=== PATIENT | male | born 1990 | race Caucasian/White ===

== ENCOUNTER 2024-07-20 00:09 | Emergency (ER) | payer OTHER ==
[~2024-07-20] VITALS: Ht 172.7 cm; Wt 96.0 kg
[2024-07-20 00:26] VITALS: O2SAT 98
[2024-07-20 02:40] LABS: BASOPHILS % 1.1 % (0.0-2.0); EOSINOPHILS % 2.2 % (0.0-5.0); HEMATOCRIT. 42.6 % (42.0-52.0); HEMOGLOBIN. 14.3 g/dL (14.0-18.0); LYMPHOCYTES % 35.6 % (20.0-50.0); MEAN CORPUSCULAR HEMOGLOBIN 28.6 pg (28.0-32.0); MEAN CORPUSCULAR HGB CONC 33.4 g/dL (31.0-37.0); MEAN CORPUSCULAR VOLUME 85.5 fL (80.0-94.0); MEAN PLATELET VOLUME 8.3 fl (7.4-10.4); MONOCYTES % 6.9 % (2.0-8.0); NEUTROPHILS % 54.2 % (40.0-76.0); PLATELET 286 x1000/uL (130-400); RED BLOOD CELL COUNT 4.98 mill/uL (4.7-6.1); RED CELL DISTRIBUTION WIDTH 12.4 % (11.6-14.6); WHITE BLOOD COUNT 7.7 x1000/uL (4.5-11.0)
[2024-07-20 02:57] LABS: CHLORIDE 105 mEq/L (98-107); POTASSIUM 3.9 mEq/L (3.5-5.1); SODIUM 140 mEq/L (136-145)
[2024-07-20 02:58] LABS: CARBON DIOXIDE 28 mEq/L (21-32)
[2024-07-20 02:59] LABS: CALCIUM 9.9 mg/dL (8.7-10.4)
[2024-07-20 03:03] LABS: CREATININE 0.9 mg/dL (0.6-1.3); GLUCOSE 92 mg/dL (70-105)
[2024-07-20 03:04] LABS: UREA NITROGEN BLOOD 14 mg/dL (9-23)
[2024-07-20 03:05] LABS: ALANINE AMINOTRANSFERASE 53 IU/L (10-49); ALBUMIN 4.9 g/dL (3.2-4.8); ASPARTATE AMINOTRANSFERASE 26 IU/L (<34)
[2024-07-20 03:06] LABS: BILIRUBIN DIRECT 0.2 mg/dL (<=3.0); BILIRUBIN TOTAL 0.7 mg/dL (0.1-1.0); PROTEIN TOTAL 7.4 g/dL (6.0-8.3)
[2024-07-20 04:01] LABS: CLARITY URINE CLEAR (CLEAR); COLOR URINE YELLOW (YELLOW); GLUCOSE URINE NEGATIVE (NEGATIVE); KETONES URINE NEGATIVE (NEGATIVE); NITRITE URINE NEGATIVE (NEGATIVE); OCCULT BLOOD URINE NEGATIVE (NEGATIVE); PROTEIN URINE NEGATIVE (NEGATIVE)
[2024-07-20 04:02] LABS: LEUKOCYTE ESTERASE URINE NEGATIVE (NEGATIVE); UROBILINOGEN URINE 0.2 E.U./dL (0.2-1.0)
[2024-07-20] MEDS ORDERED: IBUP-2030 MT (04:45)
[2024-07-20] MEDS: KETOROLAC 30MG/ML VIAL IM NR (04:56)
[2024-07-20 05:00] VITALS: BP 131/79; PULSE 69; RESP 16; TEMP 36.5; O2SAT 100
== END 2024-07-20 05:01 | disposition home or self-care (01) ==
LOC: ER 00:09
DX: K76.0 Fatty (change of) liver, not elsewhere classified (principal)
CPT/HCPCS: 99285; 76705; 80076; 80048; 81003; 83690; 85025; 36415; 96372; J1885